=== PATIENT | female | born 1985 | race Caucasian/White ===

== ENCOUNTER 2020-09-13 09:54 | Outpatient (RCR) | payer BC, SELFPAY ==
[2020-08-29 10:53] LABS: Basophils Absolute Auto 0.1 K/mm3 (0.0-0.1); Basophils Percent Auto 0.5 % (0.2-1.2); Eosinophils Absolute Auto 0.1 K/mm3 (0-0.3); Eosinophils Percent Auto 0.4 % (0-4.4); Hemoglobin 10.8 g/dL (12.0-15.0); Immature Granulocyte Absolute 0.17 K/mm3 (0.00-0.031); Immature Granulocyte Percent A 1.3 % (0-0.5); Lymphocytes Percent Auto 10.4 % (18.3-44.2); Mean Corpuscular HGB Conc 33.8 g/dl (32-36); Mean Corpuscular Hemoglobin 31.1 pg (26-34); Mean Corpuscular Volume 92.2 fl (80-100); Mean Platelet Volume 10.1 fl (7.4-10.4); Monocytes Absolute Auto 0.7 K/mm3 (0.1-0.6); Monocytes Percent Auto 5.3 % (2.6-8.5); Neutrophils Absolute Auto 11.1 K/mm3 (1.3-6.7); Neutrophils Percent Auto 82.1 % (45.5-73.1); Platelet Count Result 298 k/mm3 (150-375); Red Blood Count 3.47 M/mm3 (4.2-5.4); White Blood Count 13.5 K/mm3 (4.5-10.0)
[2020-08-29 11:15] LABS: Alanine Aminotransferase 12 U/L (4-35); Albumin Level 3.6 g/dL (3.5-5.1); Alkaline Phosphatase 92 U/L (38-126); Anion Gap 8 mmol/L (8-16); Aspartate Amino Transferase 16 U/L (14-36); Bilirubin,Total 0.2 mg/dL (0.2-1.3); Blood Urea Nitrogen 4 mg/dL (7-17); Calcium 9.2 mg/dL (8.4-10.2); Carbon Dioxide 22 mmol/L (22-30); Chloride 109 mmol/L (98-107); Estimated Glomerular Filt Rate > 60; Glucose 112 mg/dL (65-105); Glucose 1 Hour PP 50gm Dose 112 mg/dL; Lactate Dehydrogenase 239 U/L (313-618); Potassium 3.2 mmol/L (3.4-5.0); Sodium 139 mmol/L (137-145); Uric Acid 3.2 mg/dL (2.5-7.5)
[2020-08-29 11:20] LABS: Creatinine Urine 114.5 mg/dL; Total Protein Urine Random 14 mg/dL; Ur Ttl Prot Creatinine Ratio 0.12 mg/mg (0-0.20)
[2020-08-29 11:25] VITALS: BP 127/76; PULSE 105
[2020-08-29 11:54] LABS: HIV 1/2 Ab P24 Ag Result Negative (Negative)
--- NOTE | ~2020-09-13 | US_ITS ---
EXAMINATION: US OB BPP wo non-stress DATE: 08/29/2020 11:16 INDICATION: Hypertension TECHNIQUE: Real-time pelvic ultrasound was performed. The interpreting radiologist was not present fo r the study. COMPARISON: None. FINDINGS: There is a single living fetus in vertex presentation. The placenta is posterior. heart rate i s 125 beats per minute (bpm). Biophysical profile performed by the technologist: breathing (30 sec sustained breathing in 30 minutes): 2 out of 2 movement (3 gross body movements in 30 minutes): 2 out of 2 tone (one episode of yutxvwk-yciknsmve-pbgmisk limb movement): 2 out of 2 Amniotic fluid pocket (2 cm): 2 out of 2 Total score: 8 out of 8 IMPRESSION: 1. Single living fetus in vertex presentation with heart rate of 125 bpm. 2. Biophysical profile 8 out of 8. Reviewed, dictated and finalized at location A.
--- NOTE | ~2020-09-13 | US_ITS ---
EXAMINATION: US OB BPP wo non-stress DATE: 09/13/2020 11:40 CDT INDICATION: Evaluate well-being. Hypertension. TECHNIQUE: Real-time transabdominal obstetric ultrasound. FINDINGS: Comparison to 08/29/2020 There is a single living fetus in vertex presentation. The placenta is posterior without placenta pr evia. cardiac activity and movement is noted with a heart rate of 123 beats per minute. Biophysical profile: breathin of 2 movement: 2 of 2 tone: 2 of 2 Amniotic flud pocket: 2 of 2 Total score: 8 of 8 IMPRESSION: 1. Single living intrauterine in vertex presentation. 2: Total biophysical profile score of 8/8. Reviewed, dictated and finalized at location B.
[2020-09-13 11:22] VITALS: BP 115/76; PULSE 104
== END 2020-10-12 08:12 | disposition home or self-care (01) ==
LOC: ANHOBOP 09:54
PROVIDERS: PCP Family Medicine; Visit Provider Obstetrics & Gynecology
DX: Z11.4 Encounter for screening for human immunodeficiency virus [HIV] (principal); O24.419 Gestational diabetes mellitus in pregnancy, unspecified control; Z3A.31 31 weeks gestation of pregnancy; Z3A.34 34 weeks gestation of pregnancy
CPT/HCPCS: 36415; 59025; 76819; 80053; 82570; 82947; 83615; 84156; 84550; 85025; 86703; G0432

== ENCOUNTER 2020-10-03 10:39 | Outpatient (CLI) | payer BC, SELFPAY ==
[2020-10-03 11:40] VITALS: BP 137/93; PULSE 93
== END 2020-10-03 12:05 | disposition home or self-care (01) ==
LOC: ANHOBOP 11:45 → ANHLDR 11:47
PROVIDERS: PCP Family Medicine; Visit Provider Obstetrics & Gynecology
DX: O41.8X90 Other specified disorders of amniotic fluid and membranes, unspecified trimester, not applicable or unspecified (principal)
CPT/HCPCS: 59025; 84112; 99199

== ENCOUNTER 2020-10-11 05:55 | Inpatient (IN) | payer BC, SELFPAY ==
[2020-10-11] VITALS (266 sets, daily range): BP systolic 84–150; BP diastolic 39–136; PULSE 26–167; RESP 16; TEMP 36.3–37.2; O2SAT 83–100; BMI 56.0
[2020-10-11 06:58] LABS: Basophils Absolute Auto 0.1 K/mm3 (0.0-0.1); Basophils Percent Auto 0.5 % (0.2-1.2); Eosinophils Percent Auto 0.4 % (0-4.4); Hematocrit 32.3 % (37.0-47.0); Hemoglobin 11.1 g/dL (12.0-15.0); Immature Granulocyte Absolute 0.13 K/mm3 (0.00-0.031); Immature Granulocyte Percent A 1.2 % (0-0.5); Lymphocytes Percent Auto 16.9 % (18.3-44.2); Mean Corpuscular HGB Conc 34.4 g/dl (32-36); Mean Corpuscular Hemoglobin 31.8 pg (26-34); Mean Corpuscular Volume 92.6 fl (80-100); Mean Platelet Volume 9.8 fl (7.4-10.4); Monocytes Absolute Auto 0.6 K/mm3 (0.1-0.6); Monocytes Percent Auto 5.4 % (2.6-8.5); Neutrophils Absolute Auto 8.5 K/mm3 (1.3-6.7); Neutrophils Percent Auto 75.6 % (45.5-73.1); Platelet Count Result 323 k/mm3 (150-375); Red Blood Count 3.49 M/mm3 (4.2-5.4); Red Cell Distribution Width 14.8 % (11.5-14.5); White Blood Count 11.2 K/mm3 (4.5-10.0)
[2020-10-11] MEDS: LACTATED RINGERS 1,000 ML 125 ML IV CONT ×3 (06:59→13:04)
[2020-10-11] MEDS: AMPICILLIN 2 GM/NS 100 ML 2 GM/100 ML BAG IVPB (07:00)
[2020-10-11 07:06] LABS: Alanine Aminotransferase 16 U/L (4-35); Albumin Level 3.7 g/dL (3.5-5.1); Alkaline Phosphatase 157 U/L (38-126); Anion Gap 10 mmol/L (8-16); Aspartate Amino Transferase 25 U/L (14-36); Bilirubin,Total 0.3 mg/dL (0.2-1.3); Blood Urea Nitrogen 5 mg/dL (7-17); Carbon Dioxide 21 mmol/L (22-30); Chloride 105 mmol/L (98-107); Estimated Glomerular Filt Rate > 60; Glucose 123 mg/dL (65-105); Potassium 3.3 mmol/L (3.4-5.0); Sodium 136 mmol/L (137-145)
[2020-10-11] MEDS: OXYTOCIN 30 UNITS/NS 500 ML 30 UNITS/500 ML BAG IV CONT (07:07)
--- NOTE | 2020-10-11 07:14 | LDADM ---
This patient, Merna Ko, was admitted to Labor/Delivery/Recovery 102 on 10/11/20 at 05:55. Plans for labor, pain management and were discussed with patient. Patient/family oriented to hospital policies and general routines including ID bracelet, bed and alarms, visiting hours, pain management, procedures, bathroom and other care routines, personal items, smoking policy, room service/diet and guest tray routines, security routines, and visiting hours. Patient/Family are encouraged to report perceived risks to care and to ask questions if they do not understand what they are told or what they should do. See OBIX for further documentation.
--- NOTE | 2020-10-11 07:31 | PM.IMHP ---
H&P: HPI History of Present Illness Date/Time: 10/11/20 07:15 Merna is a 35yo @ 38.0wks (KLEBER 10/25/20) who presents for induction of labor due to CHTN. She reports good movement or irregular contractions. No VB or LOF. She denies DIAZ, vision changes, CP, SOB, or abdominal pain. Her is complicated by: - AMA - NIPT, low risk, female, on ASA, routine testing - Chronic hypertension on labetalol 50mg BID - Anxiety; has weaned off xanax in third trimester - [place] obesity; BMI 59 - H/o chronic back pain from fracture/bulging discs; no longer taking narcotics in - Mild anemia on iron - GBS positive Chief Complaint: induction of labor Review of Systems Review of Systems: All systems reviewed & are unremarkable except as noted in HPI and below (HPI) [facility] Family History Family History (Updated 10/03/20 @ 16:34 by José Lantigua RN) Father Hypertension Heart disease High cholesterol Social History Social History Years smoked: 3 Smoking status: Former smoker Second hand tobacco smoke exposure: Yes Substance use: never Spiritual care concerns: No Meds Home Medications and Allergies Home Medications Medication Instructions Recorded Confirmed Type aspirin [Low-Dose Aspirin] 81 mg PO DAILY 10/03/20 10/03/20 History famotidine [Pepcid] 20 mg PO DAILY 10/03/20 10/03/20 History labetalol 50 mg PO DAILY 10/03/20 10/03/20 History prenat.vits,chris,ltn-oryn-xfdfk 1 tablet PO DAILY 10/03/20 10/03/20 History [ #2] Allergies Allergy/AdvReac Type Severity Reaction Status Date / Time levofloxacin [From Levaquin] Allergy Hives Verified 10/03/20 16:30 morphine Allergy Hives Verified 10/03/20 16:30 Vital Signs Vital Signs - 24 hr 10/11/20 06:38 10/11/20 07:00 Pulse Rate 133 H 121 H Blood Pressure 125/91 H 110/78 Exam Const: General: cooperative, comfortable and no acute distress Nutritional Appearance: obese morbidly obese Resp: Effort & Inspection: normal respiratory effort and able to speak in complete sentences Cardio: Rate: regular rate GI: GI Palp: No abdominal tenderness and Yes Soft to palpation : Other: FHT's: 140's/mod debbi/ + accels/ no decels - cat 1 TOCO: irregular ctxs Cervix: 3/50/-3 Membranes: intact Presentation: cephalic Skin: General skin exam: normal color Neuro: General: patient oriented x3 Extrem: General: normal to inspection Psych: Appearance: grossly normal Affect: normal affect Attitude: cooperative H&P: Results Labs Labs: Short CBC 10/11/20 Range/Units 06:48 WBC 11.2 H (4.5-10.0) K/mm3 Hgb 11.1 L (12.0-15.0) g/dL Hct 32.3 L (37.0-47.0) % Plt Count 323 (150-375) k/mm3 BMP 10/11/20 06:48 Sodium 136 L Potassium 3.3 L Chloride 105 Carbon Dioxide 21 L BUN 5 L Creatinine 0.50 L Glucose 123 H Calcium 9.0 Liver Function 10/11/20 Range/Units 06:48 Total Bilirubin 0.3 (0.2-1.3) mg/dL AST 25 (14-36) U/L ALT 16 (4-35) U/L Alkaline Phosphatase 157 H (38-126) U/L Albumin 3.7 (3.5-5.1) g/dL Assessment and Plan Assessment and plan (1) Chronic hypertension affecting : Code(s): O10.919 - Unspecified pre-existing hypertension complicating , unspecified trimester Status: Acute (2) Morbid obesity: Code(s): E66.01 - Morbid (severe) obesity due to excess calories Status: Acute (3) AMA (advanced maternal age) multigravida 35+: Qualifiers: Trimester: third trimester Qualified Code(s): O09.523 - Supervision of elderly multigravida, third trimester Code(s): O09.529 - Supervision of elderly multigravida, unspecified trimester Status: Acute Additional Plan - Admit to L&D for IOL - Pitocin per protocol - Continuous monitoring - Ampicillin for GBS + - Anesthesia consult PRN pain
--- NOTE | 2020-10-11 07:31 | WPDHPUPDATE1 ---
History and Physical Update Update Date/Time: 10/11/20 07:31 History and Physical has been reviewed, including an updated exam of the patient. There are NO changes in the patient's condition. Risks, benefits, and alternatives have been discussed and questions answered. Patient agrees to proceed with procedure.
--- NOTE | 2020-10-11 08:42 | WPDANESEPP ---
Anes - Eval Pre Procedure Procedure: labor epidural Date/Time: 10/11/20 08:42 Preop Diagnosis: labor pain Pre Op Diagnosis: Induction of Labor Patient Data Age: 35 Gender: F Height: 1.56 m Weight: 136.7 kg Last Vital Signs Temp 37.0 C 10/11/20 07:01 Pulse 96 10/11/20 08:30 BP 111/76 10/11/20 08:30 Pulse Ox 98 10/11/20 08:39 Allergies Allergy/AdvReac Type Severity Reaction Status Date / Time levofloxacin [From Levaquin] Allergy Hives Verified 10/03/20 16:30 morphine Allergy Hives Verified 10/03/20 16:30 Home Medications Medication Instructions Recorded Confirmed Type aspirin [Low-Dose Aspirin] 81 mg PO DAILY 10/03/20 10/11/20 History famotidine [Pepcid] 20 mg PO DAILY 10/03/20 10/11/20 History labetalol 50 mg PO DAILY 10/03/20 10/11/20 History prenat.vits,chris,aaj-zztx-bpfyh 1 tablet PO DAILY 10/03/20 10/11/20 History [ #2] Laboratory Tests 10/11/20 10/11/20 10/11/20 06:48 06:48 06:48 WBC 11.2 K/mm3 H K/mm3 (4.5-10.0) RBC 3.49 M/mm3 L M/mm3 (4.2-5.4) Hgb 11.1 g/dL L g/dL (12.0-15.0) Hct 32.3 % L % (37.0-47.0) MCV 92.6 fl fl (80-100) MCH 31.8 pg pg (26-34) MCHC 34.4 g/dl g/dl (32-36) RDW 14.8 % H % (11.5-14.5) Plt Count 323 k/mm3 k/mm3 (150-375) MPV 9.8 fl fl (7.4-10.4) Immature Gran % (Auto) 1.2 % H % (0-0.5) Neut % (Auto) 75.6 % H % (45.5-73.1) Lymph % (Auto) 16.9 % L % (18.3-44.2) [place] % (Auto) 5.4 % % (2.6-8.5) Eos % (Auto) 0.4 % % (0-4.4) Baso % (Auto) 0.5 % % (0.2-1.2) Lymph # (Auto) 1.90 K/mm3 K/mm3 (0.9-3.2) [place] # (Auto) 0.6 K/mm3 K/mm3 (0.1-0.6) Eos # (Auto) 0.0 K/mm3 K/mm3 (0-0.3) Baso # (Auto) 0.1 K/mm3 K/mm3 (0.0-0.1) Abs Immat Gran (auto) 0.13 K/mm3 H K/mm3 (0.00-0.031) Absolute Neuts (auto) 8.5 K/mm3 H K/mm3 (1.3-6.7) Absolute Nucleated RBC 0.0 K/mm3 K/mm3 (0.0-0.012) Nucleated RBC % 0.0 % % (0.0-0.2) Sodium Potassium Chloride Carbon Dioxide Anion Gap BUN Creatinine Estim Creat Clear Calc Estimated GFR Glucose Uric Acid 4.0 mg/dL mg/dL (2.5-7.5) Calcium Total Bilirubin AST ALT Alkaline Phosphatase Total Protein Albumin RPR Pending Blood Type Antibody Screen 10/11/20 10/11/20 06:48 06:48 WBC RBC Hgb Hct MCV MCH MCHC RDW Plt Count MPV Immature Gran % (Auto) Neut % (Auto) Lymph % (Auto) [place] % (Auto) Eos % (Auto) Baso % (Auto) Lymph # (Auto) [place] # (Auto) Eos # (Auto) Baso # (Auto) Abs Immat Gran (auto) Absolute Neuts (auto) Absolute Nucleated RBC Nucleated RBC % Sodium 136 mmol/L L mmol/L (137-145) Potassium 3.3 mmol/L L mmol/L (3.4-5.0) Chloride 105 mmol/L mmol/L (98-107) Carbon Dioxide 21 mmol/L L mmol/L (22-30) Anion Gap 10 mmol/L mmol/L (8-16) BUN 5 mg/dL L mg/dL (7-17) Creatinine 0.50 mg/dL L mg/dL (0.7-1.0) Estim Creat Clear Calc Not Reportable Estimated GFR > 60 (59 - ) Glucose 123 mg/dL H mg/dL (65-105) Uric Acid Calcium 9.0 mg/dL mg/dL (8.4-10.2) Total Bilirubin 0.3 mg/dL mg/dL (0.2-1.3) AST 25 U/L U/L (14-36) ALT 16 U/L U/L (4-35) Alkaline Phosphatase 157 U/L H U/L (38-126) Total Protein 7.0 g/dL g/dL (6.3-8.2) Albumin 3.7 g/dL g/dL
[2020-10-11] MEDS: LABETALOL HCL 50 MG TABLET PO (08:54)
[2020-10-11] MEDS: AMPICILLIN 1 GM/NS 50 ML 1 GM/50 ML BAG IVPB ×3 (10:44→19:42)
[2020-10-11 12:11] LABS: Rapid Plasma Reagin Non-Reactive (NonReactive)
--- NOTE | 2020-10-11 12:28 | PM.OBPNLAB ---
Pain Control Date/time seen: 10/11/20 12:28 Pain control: epidural Pelvic Exam Dilation (cm): 5 Effacement (%): 60 station: -2 Amniotic membrane status: Ruptured (AROM, clear 1220) Contractions Monitor mode: External Contraction frequency: 3 Contraction pattern: Regular Status status: Category l Assessment and Plan Pitocin rate (mU/min): 10 Assessment: induction ongoing Plan: continuous present management
[2020-10-11] MEDS: FAMOTIDINE 20 MG/2 ML VIAL (15:51)
--- NOTE | 2020-10-11 17:01 | PM.OBPNLAB ---
Pain Control Date/time seen: 10/11/20 17:01 Pelvic Exam Dilation (cm): 5 Effacement (%): 80 station: -1 Amniotic membrane status: Ruptured (AROM, clear 1220) Contractions Monitor mode: Internal Contraction frequency: 2 Contraction pattern: Regular Contraction intensity: Mild Status status: Category l Assessment and Plan Pitocin rate (mU/min): 16 Assessment: induction ongoing Plan: continuous present management Comments: - MERLIN position - IUPC placed - increase pitocin for adequate contractions
--- NOTE | 2020-10-11 22:38 | PM.OBPRVD ---
OB - Delivery Note Procedure Delivery date: 10/11/20 events: Labor Induction (due to chronic hypertension) Intrapartal events: None Induction method: per pitocin protocol Delivery augmentation: rupture of membranes Delivery monitor: external FHT and internal uterine Route of delivery: Laceration Description: None Quantitative Blood Loss (ml): 100 Anesthesia type: Epidural Disposition: floor Baby Date of : 10/11/20 Time of : 22:23 Weeks of gestation at delivery: 38 gender: Female Weight (pounds): 6 Weight (ounces): 15 presentation: vertex position: Right Occiput Anterior Placenta delivery description: Expressed cord vessel description: 3 Vessels score one minute: 9 score five minutes: 9 Narrative: Merna progressed to complete dilation with significant desire to push. After 4 pushes she delivered the head over intact perineum. No nuchal cord was palpated. She then easily delivered the shoulders and body without complications. The infant was immediately placed skin to skin and had spontaneous cry. Delayed cord clamping was performed. The cord was then clamped and cut. A segment of the cord was collected for cord gases. The remaining cord blood was collected for typing. With Pitocin running, and gentle downward traction on the cord, the placenta delivered without complications. Bimanual massage was performed and good uterine tone with minimal bleeding was noted. No lacerations were noted. Sponge, lap, and instrument counts were correct at the end of the procedure. Mom and baby were left bonding in the birthing suite in stable condition.
[2020-10-11] MEDS: OXYTOCIN 30 UNITS/NS 500 ML 30 UNITS/500 ML BAG 125 UNITS IV CONT (22:48)
[2020-10-12] VITALS (9 sets, daily range): BP systolic 117–141; BP diastolic 55–94; PULSE 90–115; RESP 16–18; TEMP 36.6–36.9; O2SAT 97–100
[2020-10-12] MEDS: WITCH HAZEL 40 PADS 1 PAD TOPICAL (00:36)
[2020-10-12] MEDS: BENZOCAINE 20% AER SPR (*SP) 56 GM CAN 1 SPRAY TOPICAL (00:36)
[2020-10-12] MEDS: IBUPROFEN 600 MG TABLET PO ×3 (00:36→20:14)
--- NOTE | 2020-10-12 01:08 | OBPPTRN ---
Patient transferred to post room #277 via wheelchair. Support person present. Oriented to unit, room, information board, rooming in, admission packet and security measures. Patient verbalizes understanding.
[2020-10-12 05:46] LABS: Hematocrit 29.8 % (37.0-47.0); Hemoglobin 10.1 g/dL (12.0-15.0)
--- NOTE | 2020-10-12 07:15 | P.PNOB_ITS ---
OB - PN: Subj Subjective Date/time seen: 10/12/20 07:15 PPD#1 Merna reports doing well today. Her pain is controlled. She has ambulated without issue. She has tolerated regular diet. She has voided and passed gas. She reports her bleeding is light. She is bottle feeding. She would like to go home tomorrow. She denies CP, SOB, DIAZ, vision changes, N/V, dizziness or palpitations. She reports bothersome allergy symptoms and usually takes zyrtec- D. She is also interested in the depo-provera shot before discharge home. OB - PN: Obj Data Labs CBC & Chem 7: 10/12/20 05:09 10/11/20 06:48 Labs: Laboratory Results - last 24 hr 10/12/20 05:09 Hgb 10.1 L Hct 29.8 L OB - PN A/P Assessment and Plan (1) Normal vaginal delivery: Code(s): O80 - Encounter for full-term uncomplicated delivery Status: Acute (2) Chronic hypertension affecting : Code(s): O10.919 - Unspecified pre-existing hypertension complicating , unspecified trimester Status: Acute Plan day: 1 Plan: routine care and discharge home (tomorrow) Comments: - F/u in 4wks - Pelvic rest; take meds as prescribed - ER return precautions: fever, n/v/abd pain, HTN, bleeding Time Spent With Patient Time: Total time spent is greater than 50% in coordination of care (as documented) at patient's floor/unit and/or counseling patient: Review of Systems Review of Systems: All systems reviewed & are unremarkable except as noted in HPI and below (HPI) Exam Const: General: cooperative, comfortable and no acute distress Nutritional Appearance: obese morbidly obese Resp: Effort & Inspection: normal respiratory effort and able to speak in complete sentences Auscultation: clear to auscultation bilaterally Cardio: Rate: regular rate GI: Inspection: normal to inspection and non-distended GI Palp: No abdominal tenderness and Yes Soft to palpation Auscultation: normal bowel sounds Skin: General skin exam: normal color Neuro: General: patient oriented x3 Extrem: General: normal to inspection Psych: Appearance: grossly normal Affect: normal affect Attitude: cooperative
[2020-10-12] MEDS: MULTIVIT/MIN/PREN/FOL AC/IRON TABLET 1 TAB PO (08:15)
[2020-10-12] MEDS: FAMOTIDINE 20 MG TABLET PO (08:15)
[2020-10-12] MEDS: LORATADINE/PSEUDOEPHEDRINE (*CRX) 10/240 MG TABLET ER 24 HR 1 TAB PO (08:15)
[2020-10-12] MEDS: medroxyPROGESTERone ACETATE IM 150 MG/ML SYR IM (08:47)
[2020-10-12] MEDS: ACETAMINOPHEN 325 MG TABLET 650 MG PO (12:58)
--- NOTE | 2020-10-12 13:21 | WPDANLDPN2 ---
Anes-Prog Note L&D Date/Time: 10/12/20 13:21 Comfortable throughout: labor and delivery Neuraxial method: epidural Epidural/Spinal procedure site: clean & non-tender Neuro status: Neuro function grossly intact. Cardiovascular status: normal Respiratory status: normal Airway patency: baseline Mental status: baseline Post-Op hydration status: normal Vital Signs: Last Vital Signs Temp 36.8 C 10/12/20 11:36 Pulse 94 10/12/20 11:36 Resp 16 10/12/20 11:36 BP 139/94 H 10/12/20 11:36 Pulse Ox 97 10/12/20 11:36 Pain score (VAS): 2 I/O: Intake & Output 10/11/20 10/12/20 10/12/20 23:59 07:59 15:59 Intake Total 100 700 Output Total 100 729 Balance 0 -29 Post-procedural complaints: none Patient feedback: Patient satisfied with anesthetic care.
[2020-10-13] MEDS: ACETAMINOPHEN 325 MG TABLET 650 MG PO (00:23)
[2020-10-13] MEDS: DOCUSATE SODIUM 100 MG CAPSULE PO (07:44)
[2020-10-13] MEDS: IBUPROFEN 600 MG TABLET PO (07:44)
[2020-10-13] MEDS: FAMOTIDINE 20 MG TABLET PO (07:45)
[2020-10-13] MEDS: LORATADINE/PSEUDOEPHEDRINE (*CRX) 10/240 MG TABLET ER 24 HR 1 TAB PO (07:45)
[2020-10-13 08:00] VITALS: BP 127/73; PULSE 78; RESP 18; TEMP 36.4
--- NOTE | 2020-10-13 08:00 | PC.NURSE ---
Patient was given the opportunity to view the discharge video Mother & Baby Care, The First Two Weeks and to ask questions. Patient declined viewing the video and has been given the mother/baby guide for home reference.
[2020-10-13 08:01] VITALS: PULSE 80
[2020-10-13] MEDS: LABETALOL HCL 50 MG TABLET PO (08:01)
--- NOTE | 2020-10-13 09:21 | PC.NURSE ---
Self care and infant discharge care given to pt. including follow up visit date and time. Pt. verbalized understanding. No questions or concerns voiced. Instructed pt. on the importance of continuing b/p medication prescribed by MD. Instructed to call MD. is feeling dizzy, light headed, upper stomach discomfort, sudden onset of swelling or weight gain, spots in front of eyes. Pt. verbalized understanding. States that her b/p is elevated due to her anxiety. Instructed to speak with MD. about resuming antidepressant she was on before becoming . Pt. states she will call and discuss with MD. at side.
[2020-10-16 10:29] VITALS: BP 116/55; PULSE 100; RESP 18; TEMP 37.1; O2SAT 98
--- NOTE | 2020-10-24 11:13 | PM.OBDSVD ---
DS: Admitting Diagnosis Admitting Diagnosis Admitting Diagnosis: induction of labor chronic hypertension affecting DS: Discharge Diagnosis Discharge Diagnosis (1) Normal vaginal delivery: Code(s): O80 - Encounter for full-term uncomplicated delivery Status: Acute (2) AMA (advanced maternal age) multigravida 35+: Qualifiers: Trimester: third trimester Qualified Code(s): O09.523 - Supervision of elderly multigravida, third trimester Code(s): O09.529 - Supervision of elderly multigravida, unspecified trimester Status: Acute (3) Chronic hypertension affecting : Code(s): O10.919 - Unspecified pre-existing hypertension complicating , unspecified trimester Status: Acute OB - DS: Summary OB Procedures : NST, PIH Mgmt and Ultrasound OB Procedures Intrapartum: Spontaneous Vag Delivery OB Procedures: : None Peripartum Data Delivery Method: Natural Vaginal Laceration Description: None complications: none 1: Gender: Female Disposition of : home Status at Discharge Functional status at discharge: independent ambulation Overall status at discharge: patient is back to baseline Time Spent with Patient Time attestation: Total time spent providing and/or coordinating discharge services: Time spent: Less than 30 minutes Exam Const: General: cooperative, comfortable and no acute distress Nutritional Appearance: obese Resp: Effort & Inspection: normal respiratory effort and able to speak in complete sentences Auscultation: clear to auscultation bilaterally Cardio: Rate: regular rate GI: Inspection: normal to inspection and non-distended GI Palp: Yes Soft to palpation Auscultation: normal bowel sounds : Other: fundus firm Skin: General skin exam: normal color Neuro: General: patient oriented x3 Extrem: General: normal to inspection Psych: Appearance: grossly normal Affect: normal affect Attitude: cooperative DS: Data Data Completed and Pending Completed studies during hospitalization: Pending at discharge 10/11/20 22:39 Surgical [PTH] Routine Discharge Plan Discharge Attending physician on discharge: Heather Silva Discharging Clinician: Heather Silva Anticipated Discharge Date/Time: 10/13/20 08:00 Patient Disposition: Home, Self-Care Activity: pelvic rest Diet: regular Discharge Instructions: Education: Mom and Baby Guide Given to: Mother Follow-Up: Call your delivering provider's office for an appointment to be seen in: 4 Weeks Mom and baby should come to the [facility] for the follow-up appointment. Appointment Date/Time: Friday, October 16, 2020 at 10:00 am What to expect at your follow-up visit: Blood Pressure Check Physical Assessment Call [phone] if you are unable to keep your appointment time. BREAST CARE: * Wear a snug supportive bra. * Wear loose clothing Bottle Feeding: * May apply ice packs* For sore nipples: * Identify correct latch-on * Apply warm moist washcloths before and after nursing * Air dry nipples after nursing * May apply Lansinoh cream to nipples EPISIOTOMY/PERINEAL CARE: * Until bleeding stops, use your mary bottle after urinating * Change your pad frequently throughout the day * You may take sitz baths several times a day (fill your bathtub with warm water and soak for 20 minutes.) Do NOT bathe in the water * No tub baths until seen by your physician - You may shower ACTIVITY: * Rest as much as possible. * Do not exercise or lift anything heavier than your baby (such as laundry or other children.) * Do not put anything into the vagina. No douching, tampons, or sexual activity until seen by physician. NOTIFY PHYSICIAN IF YOU HAVE ANY QUESTIONS OR IF ANY OF THE FOLLOWING SYMPTOMS OCCUR: * If your
== END 2020-10-13 10:00 | disposition home or self-care (01) | DRG 560 ==
LOC: ANHLDR 06:08 → ANHOB2 10-12 08:02 → ANHLDR 10-16 11:23 → ANHOB2 10-16 11:23
PROVIDERS: Admitting Provider Obstetrics & Gynecology; PCP Family Medicine; Visit Provider Obstetrics & Gynecology
DX: O10.92 Unspecified pre-existing hypertension complicating childbirth (principal); O99.214 Obesity complicating childbirth; E66.01 Morbid (severe) obesity due to excess calories; O99.02 Anemia complicating childbirth; D64.9 Anemia, unspecified; O99.824 Streptococcus B carrier state complicating childbirth; Z3A.38 38 weeks gestation of pregnancy; Z37.0 Single live birth
CPT/HCPCS: 36415; 80053; 84550; 85014; 85018; 85025; 86592; 86850; 86900; 86901; 88307; A9270; J0290; J1050; J2590; J2795; J7120